=== PATIENT | male | born 1955 | race Caucasian/White ===

== ENCOUNTER 2022-09-26 22:03 | Inpatient (IN) | payer OTHER, SELFPAY ==
--- NOTE | 2022-09-26 | ECG_ITS ---
Test Reason : SOB Blood Pressure : / mmHG Vent. Rate : 116 BPM Atrial Rate : 116 BPM P-R Int : 144 ms QRS Dur : 140 ms QT Int : 354 ms P-R-T Axes : 060 111 015 degrees QTc Int : 492 ms Sinus tachycardia Nonspecific ST abnormality Possible Left atrial enlargement Right bundle branch block Left posterior fascicular block Bifascicular block Abnormal ECG No previous ECGs available Referred By: Generic ED Physician Electronically Signed By:VIOLET MONROE MD
[2022-09-26 22:08] VITALS: BP 242/165; PULSE 128; RESP 16; TEMP 36.7; O2SAT 99; BMI 27.8
[2022-09-26 22:41] LABS: MANUAL DIFF FLAG NO
[2022-09-26 22:42] LABS: Basophils Percent Auto 0.3 % (0-2); Eosinophils Absolute Auto 0.1 X10*3/uL (0.0-0.4); Eosinophils Percent Auto 0.5 % (0-4); Hematocrit 49.7 % (42.0-52.0); Hemoglobin 17.1 g/dl (14.0-18.0); Imm Gran Abs Auto 0.04 X10*3/uL (0.00-0.03); Imm Gran Pct Auto 0.4 % (0.0-0.4); Lymphocytes Absolute Auto 1.4 X10*3/uL (1.2-4.9); Lymphocytes Percent Auto 13.1 % (20-40); Mean Corpuscular HGB Conc 34.4 g/dl (31.0-36.0); Mean Corpuscular Hemoglobin 30.6 pg (27.0-33.0); Mean Corpuscular Volume 89.1 fL (80.0-98.0); Mean Platelet Volume 8.4 fL (9.4-12.4); Monocytes Absolute Auto 0.6 X10*3/uL (0.1-1.2); Monocytes Percent Auto 5.4 % (2-11); Neutrophils Absolute Auto 8.4 x10*3/uL (2.0-8.3); Neutrophils Percent Auto 80.3 % (45-73); Platelet Count 265 X10*3/uL (160-400); Red Blood Count 5.58 X10*6/uL (4.60-5.80); Red Cell Distribution Width 12.3 % (11.0-16.0); White Blood Count 10.5 X10*3/uL (4.8-10.8)
[2022-09-26 22:50] VITALS: BP 203/120; PULSE 123; RESP 19; O2SAT 97
[2022-09-26 22:58] LABS: Alanine Aminotransferase 48 U/L (0-40); Albumin Level 4.7 g/dL (3.5-5.0); Alkaline Phosphatase 91 U/L (39-117); Anion Gap 19 (12-20); Aspartate Amino Transferase 27 U/L (5-37); Bilirubin Total 0.4 mg/dL (0.0-1.0); Blood Urea Nitrogen 22 mg/dL (9-16); Calcium 9.4 mg/dL (8.4-10.2); Carbon Dioxide 19 mmol/L (22-29); Chloride 103 mmol/L (96-108); Creatinine Clr Calc Pharmacy 63.9; Estimated Glomerular Filt Rate 57; Glucose Random 241 mg/dL (60-115); Potassium 4.4 mmol/L (3.3-5.1); Sodium 137 mmol/L (135-145); Total Protein 7.9 g/dL (6.5-8.0)
[2022-09-26 23:08] LABS: Troponin-I High Sensitivity 192.2 ng/L (<3.5-35.0)
--- NOTE | 2022-09-26 23:08 | ED_ITS ---
HPI - General Adult General Chief complaint: General Medical Stated complaint: difficulty breathing , rapid heart beat Time Seen by Provider: 09/26/22 22:54 Source: patient and family Mode of arrival: ambulatory Limitations: no limitations History of Present Illness HPI narrative: 66-year-old male with no known past medical history (has not been to see a doctor for several years) presents to the emergency department today with vague symptoms of general weakness. States he feels ?like I ran out of gas?. This h as been going on for several weeks on and off. No associated chest pain or shortness of breath. There has been no fevers or shaking chills. Negative COVID test approximately 3 weeks ago. Onset (ago): day(s) Location: chest, back and upper extremity Radiation: non-radiation Severity: moderate Quality: dull Pain Consistency: intermittent Related Data Previous Rx's Medication Instructions Recorded amlodipine 10 mg tablet 10 mg PO DAILY #30 tabs 09/29/22 aspirin 81 mg chewable tablet 81 mg PO DAILY #30 tabs 09/29/22 atorvastatin 80 mg tablet 80 mg PO BEDTIME #30 tabs 09/29/22 clopidogrel 75 mg tablet (Plavix) 75 mg PO DAILY #30 tabs 09/30/22 metoprolol succinate 25 mg 25 mg PO DAILY #30 tabs 09/30/22 tablet,extended release 24 hr Allergies Allergy/AdvReac Type Severity Reaction Status Date / Time No Known Allergies Allergy Verified 09/26/22 23:09 Review of Systems Constitutional: Constitutional: Reports body ache(s), Denies chills, Denies fever(s) and Denies weakness Eyes: Eyes: Denies blurry vision, Denies diplopia and Denies eye discharge ENT: Denies dizziness, Denies nasal congestion, Denies sore throat and Denies throat swelling Cardiovascular: Cardiovascular: Denies syncope, Denies Loss of Consciousness, Denies palpitations and Denies dyspnea Respiratory: Respiratory: Reports no additional respiratory complaints, Denies dyspnea and Denies wheezing Gastrointestinal: Gastrointestinal: Reports no additional gastrointestinal complaints, Denies nausea and Denies vomiting Genitourinary: Genitourinary: Reports no additional male genitourinary complaints, Denies dysuria and Denies urinary frequency Musculoskeletal: Musculoskeletal: Reports no additional musculoskeletal complaints, Denies back pain and Denies arthralgias Integumentary/Breasts: Skin/Breast: Reports system reviewed and no additional complaints, except as docu and Denies jaundice Neurologic: Denies Abnormal speech present, Denies dizziness, Denies syncope, Denies Sensory deficit (Neuro) and Denies weakness Endocrine: Endocrine: Denies palpitations Allergic/Immunologic: Allergic/Immunologic: Denies throat swelling and Denies wheezing [facility] Past Medical History Attestation statement: The following information was validated with the patient. [facility] Narrative: No significant past medical or social history Source: nursing notes reviewed Medical History Patient denies significant medical history Surgical History No history of previous surgery Family History Family History (Updated 09/27/22 @ 11:28 by Celso Rodrigues MD) Mother Atrial fibrillation Heart valve replaced Other No family history of coronary artery disease Social History Social History Household Members: Spouse Housing: House Do you presently have visiting nurse or other home services: No Alcohol intake: former Patient Tobacco Use Status: Never used Tobacco service: No Physical Exam ED Vital Signs: Vital Signs - 24 hr 09/26/22 22:08 09/26/22 22:50 Temperature 98.1 F Pulse Rate 128 H 123 H Respiratory Rate 16 19 Blood Pressure 242/165 H 203/120 H Pulse Oximetry 99 97 Oxygen Delivery Method Room Air Room Air BMI result Body Mass Index 27.8 Vital signs notable for significant tachycardia, as well as hypertension Const General: cooperative, no acute distress, alert and awake; No diaphoretic Nutritional Appearance: overweight Orientation/consciousness: patient oriented x3 Limitations: no limitations [facility] Head: Yes normal to inspection, Yes normocephalic and Yes atraumatic Ears: hearing grossly normal bilaterally General nose exam: Normal external nose present Face and sinus: Yes normal facial exam Mouth: Normal oral and palatal mucosa present Eyes General: appearance normal, both eyes and all related structures Conjunctivae: conjunctivae normal Sclerae: sclerae normal Pupils: Equal, round and reactive pupils present EOM: EOMs intact bilaterally Neck Neck: Yes normal visual inspection and Yes full ROM Resp Effort & Inspection: normal respiratory effort, normal respiratory pattern and no cough Auscultation: clear to auscultation bilaterally Cardio Rate: regular rate Rhythm: regular rhythm Heart sounds: no murmurs GI Inspection: Yes normal to inspection, No Abdominal wall edema and No distended Palpation (GI): not soft and nontender Back/Spine/Pelvis Cervical Spine: normal cervical lordosis and cervical ROM normal Skin General skin exam: no rashes or lesions noted, no jaundice and no pallor Neuro General: patient oriented x3 and CN's II-XI intact bilaterally Cranial nerves: Yes Equal, round and reactive pupils present Cognition (Neuro): normal cognition Speech: No Abnormal speech present Motor exam (neuro): 5/5 motor strength present throughout Sensory Exam: No Sensory deficit (Neuro) Medications Administered Discontinued Medications Generic Name Dose Route Start Last Admin Trade Name Freq PRN Reason Stop Dose Admin Amlodipine Besylate 10 mg 09/27/22 09:00 09/30/22 09:04 Amlodipine Besylate 10 Mg Tablet PO 10 mg DAILY DEEPALI Administration Protocol Aspirin 325 mg 09/26/22 23:09 09/26/22 23:25 Aspirin 325 Mg Tablet PO 09/26/22 23:10 325 mg ONCE ONE Administration Aspirin 81 mg 09/28/22 09:00 09/30/22 09:04 Aspirin 81 Mg Tab.Chew PO 81 mg DAILY DEEPALI Administration Atorvastatin Calcium 80 mg 09/28/22 21:00 09/29/22 19:54 Atorvastatin Calcium 80 Mg Tablet PO 80 mg BEDTIME DEEPALI Administration Clopidogrel Bisulfate 300 mg 09/29/22 17:18 09/29/22 18:52 Clopidogrel Bisulfate 300 Mg Tablet PO 09/29/22 17:19 300 mg ONCE ONE Administration Heparin Sodium (Porcine) 4,000 unit 09/27/22 07:21 09/27/22 07:32 Heparin Sodium,Porcine 5,000 Unit/Ml Vial IVPUSH 09/27/22 07:22 4,000 unit ONCE ONE Administration Heparin Sodium (Porcine) 4,800 unit 09/27/22 07:21 09/27/22 22:11 Heparin Sodium,Porcine 5,000 Unit/Ml Vial 40 unit/kg (4800 unit) 4,800 unit IVPUSH Administration PROTOCOL BOLUS PRN 40 unit/kg - Heparin Protocol Protocol Hydrochlorothiazide 25 mg 09/27/22 01:35 09/27/22 01:47 Hydrochlorothiazide 25 Mg Tablet PO 25 mg DAILY DEEPALI Administration Protocol Sodium Chloride 1,000 mls @ 1,000 mls/hr 09/26/22 23:09 09/27/22 01:13 Ns IV 09/27/22 00:08 Infused .Q1H ONE Infusion Metoprolol Tartrate 5 mg/ 55 mls @ 230 mls/hr 09/26/22 23:11 09/26/22 23:52 Sodium Chloride IV 09/26/22 23:25 Infused ONCE ONE Infusion Lactated Ringer's 1,000 mls @ 100 mls/hr 09/27/22 01:30 09/28/22 09:05 Lr IVCONT Infused .Q10H DEEPALI Infusion Heparin Sodium/Sodium Chloride 25,000 unit in 250 mls @ 0 mls/hr 09/27/22 07:30 09/29/22 09:53 Heparin Sodium,Porcine/1/2ns IVCONT Infused .Q0M DEEPALI Titration Protocol Per Protocol Labetalol HCl 200 mg 09/27/22 00:08 09/27/22 00:15 Labetalol Hcl 200 Mg Tablet PO 09/27/22 00:09 200 mg ONCE ONE Administration Protocol Metoprolol Succinate 25 mg 09/29/22 17:20 09/30/22 09:04 Metoprolol Succinate Er 25 Mg Tab.Er.24h PO 25 mg DAILY [facility] Administration Protocol Sodium Chloride 3 ml 09/27/22 08:00 09/30/22 17:05 0.9 % Sodium Chloride Flush 3 Ml Syringe IVFLUSH 3 ml QSHIFT [facility] Administration Medical Decision Making Lab Data 09/28/22 04:02 09/28/22 04:02 Labs: Lab Results 09/26/22 09/26/22 09/26/22 Range/Units 22:36 22:36 22:36 WBC 10.5 (4.8-10.8) X10*3/uL RBC 5.58 (4.60-5.80) X10*6/uL Hgb 17.1 (14.0-18.0) g/dl Hct 49.7 (42.0-52.0) % MCV 89.1 (80.0-98.0) fL MCH 30.6 (27.0-33.0) pg MCHC 34.4 (31.0-36.0) g/dl RDW 12.3 (11.0-16.0) % Plt Count 265 (160-400) X10*3/uL MPV 8.4 L (9.4-12.4) fL Immature Gran % (Auto) 0.4 (0.0-0.4) % Neut % (Auto) 80.3 H (45-73) % Lymph % (Auto) 13.1 L (20-40) % [place] % (Auto) 5.4 (2-11) % Eos % (Auto) 0.5 (0-4) % Baso % (Auto) 0.3 (0-2) % Lymph # (Auto) 1.4 (1.2-4.9) X10*3/uL [place] # (Auto) 0.6 (0.1-1.2) X10*3/uL Eos # (Auto) 0.1 (0.0-0.4) X10*3/uL Baso # (Auto) 0.0 (0.0-0.2) X10*3/uL Abs Immat Gran (auto) 0.04 H (0.00-0.03) X10*3/uL Absolute Neuts (auto) 8.4 H (2.0-8.3) x10*3/uL Absolute Nucleated RBC 0.000 (0.0-0.012) X10*3/uL Nucleated RBC % (auto) 0.0 (0.0-0.2) /100WBC Sodium 137 (135-145) mmol/L Potassium 4.4 (3.3-5.1) mmol/L Chloride 103 (96-108) mmol/L Carbon Dioxide 19 L (22-29) mmol/L Anion Gap 19 (12-20) BUN 22 H (9-16) mg/dL Creatinine 1.28 (0.5-1.4) mg/dL Estim Creat Clear Calc 63.9 Estimated GFR 57 Random Glucose 241 H (60-115) mg/dL Calcium 9.4 (8.4-10.2) mg/dL Total Bilirubin 0.4 (0.0-1.0) mg/dL AST 27 (5-37) U/L ALT 48 H (0-40) U/L Alkaline Phosphatase 91 (39-117) U/L Troponin I High Sens 192.2 H* (<3.5-35.0) ng/L Total Protein 7.9 (6.5-8.0) g/dL Albumin 4.7 (3.5-5.0) g/dL Influenza Type A (PCR) (Negative) Influenza Type B (PCR) (Negative) RSV RNA Qual (PCR) (Negative) SARS-CoV-2 RNA (RT-PCR) (Negative) 09/26/22 Range/Units 23:21 WBC (4.8-10.8) X10*3/uL RBC (4.60-5.80) X10*6/uL Hgb (14.0-18.0) g/dl Hct (42.0-52.0) % MCV (80.0-98.0) fL MCH (27.0-33.0) pg MCHC (31.0-36.0) g/dl RDW (11.0-16.0) % Plt Count (160-400) X10*3/uL MPV (9.4-12.4) fL Immature Gran % (Auto) (0.0-0.4) % Neut % (Auto) (45-73) % Lymph % (Auto) (20-40) % [place] % (Auto) (2-11) % Eos % (Auto) (0-4) % Baso % (Auto) (0-2) % Lymph # (Auto) (1.2-4.9) X10*3/uL [place] # (Auto) (0.1-1.2) X10*3/uL Eos # (Auto) (0.0-0.4) X10*3/uL Baso # (Auto) (0.0-0.2) X10*3/uL Abs Immat Gran (auto) (0.00-0.03) X10*3/uL Absolute Neuts (auto) (2.0-8.3) x10*3/uL Absolute Nucleated RBC (0.0-0.012) X10*3/uL Nucleated RBC % (auto) (0.0-0.2) /100WBC Sodium (135-145) mmol/L Potassium (3.3-5.1) mmol/L Chloride (96-108) mmol/L Carbon Dioxide (22-29) mmol/L Anion Gap (12-20) BUN (9-16) mg/dL Creatinine (0.5-1.4) mg/dL Estim Creat Clear Calc Estimated GFR Random Glucose (60-115) mg/dL Calcium (8.4-10.2) mg/dL Total Bilirubin (0.0-1.0) mg/dL AST (5-37) U/L ALT (0-40) U/L Alkaline Phosphatase (39-117) U/L Troponin I High Sens (<3.5-35.0) ng/L Total Protein (6.5-8.0) g/dL Albumin (3.5-5.0) g/dL Influenza Type A (PCR) NEGATIVE (Negative) Influenza Type B (PCR) NEGATIVE (Negative) RSV RNA Qual (PCR) NEGATIVE (Negative) SARS-CoV-2 RNA (RT-PCR) NEGATIVE (Negative) Discharge Plan Discharge Clinical Impression: Hypertensive emergency, Elevated troponin level Patient Disposition: Admitted As Inpatient Interventions: Admission Worksheet (ED) Last Done: 09/27/22 09:11 Discharge Date/Time: 09/27/22 09:11
[2022-09-26] MEDS: Aspirin 325 MG TABLET PO (23:25)
[2022-09-26] MEDS: 0.9 % Sodium Chloride 1,000 ML 1000 ML IV (23:29)
[2022-09-26] MEDS: Metoprolol Tartrate 5 MG in 0.9 % Sodium Chloride 50 ML 230 MG IV (23:32)
[2022-09-26 23:35] VITALS: BP 200/125; PULSE 96; RESP 20; O2SAT 97
--- NOTE | 2022-09-27 | ECG_ITS ---
Test Reason : HIGH TROPONIN Blood Pressure : / mmHG Vent. Rate : 081 BPM Atrial Rate : 081 BPM P-R Int : 156 ms QRS Dur : 138 ms QT Int : 398 ms P-R-T Axes : 060 068 113 degrees QTc Int : 462 ms Normal sinus rhythm Right bundle branch block T wave abnormality, consider lateral ischemia Abnormal ECG When compared with ECG of 26-SEP-2022 22:23, T wave inversion no longer evident in Inferior leads T wave inversion now evident in Anterolateral leads Referred By: Maryjo Moody Electronically Signed By:VIOLET MONROE MD
[2022-09-27 00:05] LABS: Influenza A PCR NEGATIVE (Negative); Influenza B PCR NEGATIVE (Negative); Resp Syncy Virus RNA Qual PCR NEGATIVE (Negative); SARS COV2 PCR INHOUSE NEGATIVE (Negative)
[2022-09-27 00:14] VITALS: BP 152/97; PULSE 83; RESP 20; O2SAT 96
[2022-09-27] MEDS: Labetalol HCL 200 MG TABLET PO (00:15)
[2022-09-27] MEDS: hydroCHLOROthiazide 25 MG TABLET PO (01:47)
[2022-09-27] MEDS: Lactated Ringers 1,000 ML 100 ML IVCONT ×3 (01:48→23:10)
[2022-09-27 02:26] LABS: Troponin-I High Sensitivity 1476.9 ng/L (<3.5-35.0)
--- NOTE | 2022-09-27 02:43 | PC.NURSE ---
EKG obtained 09/27/22 - 02:31 Per Hospitalist. Sent Via [employer] App for review.
--- NOTE | 2022-09-27 03:22 | PC.NURSE ---
This RN informs MD Maryjo Moody of troponin result at this time. Troponin 1476.9 (up from 192.2). Patient denies chest pain or discomfort at this time.
[2022-09-27 03:43] VITALS: BP 102/71; PULSE 79; RESP 16; O2SAT 95
[2022-09-27 06:01] LABS: MANUAL DIFF FLAG NO
[2022-09-27 06:04] LABS: Basophils Percent Auto 0.5 % (0-2); Eosinophils Percent Auto 0.5 % (0-4); Hematocrit 43.5 % (42.0-52.0); Hemoglobin 14.7 g/dl (14.0-18.0); Imm Gran Abs Auto 0.02 X10*3/uL (0.00-0.03); Imm Gran Pct Auto 0.2 % (0.0-0.4); Lymphocytes Absolute Auto 1.8 X10*3/uL (1.2-4.9); Lymphocytes Percent Auto 21.6 % (20-40); Mean Corpuscular HGB Conc 33.8 g/dl (31.0-36.0); Mean Corpuscular Hemoglobin 30.4 pg (27.0-33.0); Mean Corpuscular Volume 90.1 fL (80.0-98.0); Mean Platelet Volume 8.5 fL (9.4-12.4); Monocytes Absolute Auto 0.7 X10*3/uL (0.1-1.2); Monocytes Percent Auto 8.8 % (2-11); Neutrophils Absolute Auto 5.6 x10*3/uL (2.0-8.3); Neutrophils Percent Auto 68.4 % (45-73); Platelet Count 236 X10*3/uL (160-400); Red Blood Count 4.83 X10*6/uL (4.60-5.80); Red Cell Distribution Width 12.5 % (11.0-16.0); White Blood Count 8.1 X10*3/uL (4.8-10.8)
[2022-09-27 06:22] LABS: Anion Gap 13 (12-20); Blood Urea Nitrogen 18 mg/dL (9-16); Calcium 8.6 mg/dL (8.4-10.2); Carbon Dioxide 22 mmol/L (22-29); Chloride 105 mmol/L (96-108); Creatinine Clr Calc Pharmacy 85.3; Estimated Glomerular Filt Rate > 60; Glucose Random 117 mg/dL (60-115); Potassium 4.4 mmol/L (3.3-5.1); Sodium 136 mmol/L (135-145)
[2022-09-27 06:23] LABS: B Type Natriuretic Peptide 180 pg/mL (<100)
[2022-09-27 06:28] LABS: Troponin-I High Sensitivity > 3600.0 ng/L (<3.5-35.0)
[2022-09-27 06:41] VITALS: BMI 35.6
--- NOTE | 2022-09-27 06:43 | PM.IMHP ---
History of Present Illness Date of Service: 09/27/22 Chief Complaint: Fatigue This is a 66-year-old male with no past medical history that he knows of, he has not seen a physician in over 15 years presents to the hospital with complaints of feeling fatigue with minimal activity. Patient reports that for the past 2 weeks he has had very strange symptoms that when he does minimal exertional activity he feels that he cannot take deep breaths and significant fatigue that improves on rest. Patient denies any headache, no dizziness, palpitations, no cough, no sputum production, no abdominal pain nausea or vomiting, no diarrhea constipation, no urinary symptoms and no lower extremity edema. On arrival to the ED patient's blood pressure was 2 40-1 was 65, patient at that time reported no other symptoms. Including no headache no chest pain, and no urinary change. Labs are significant for WBC count of 8.1, initial troponin of 192, increased to 1476, BNP of 180, EKG on arrival showed sinus tachycardia with a heart rate of 116, T-wave inversion in lead 3, Patient denies any chest pain Review of Systems Review of Systems: Yes all other systems are reviewed and are negative [facility] Medical History Patient denies significant medical history Family History Other No family history of coronary artery disease Surgical History No history of previous surgery Social History Alcohol intake: former Patient Tobacco Use Status: Former Tobacco user Use of substances other than those prescribed or required for medical reasons: No Advance Directives: No Advance Directives Information Provided: Yes Meds Allergies Allergy/AdvReac Type Severity Reaction Status Date / Time No Known Allergies Allergy Verified 09/26/22 23:09 Active Medications: Current Medications Acetaminophen (Acetaminophen 325 Mg Tablet) 650 mg PO Q6H PRN PRN Reason: Pain, Mild (Pain Scale 1-3) Amlodipine Besylate (Amlodipine Besylate 10 Mg Tablet) 10 mg PO DAILY DEEPALI; Protocol Docusate Sodium (Docusate Sodium 100 Mg Capsule) 100 mg PO DAILY PRN PRN Reason: Constipation Heparin Sodium (Porcine) (Heparin Sodium,Porcine 5,000 Unit/Ml Vial) 7,400 unit 80 unit/kg (7400 unit) IVPUSH ONCE ONE Stop: 09/27/22 06:36 Heparin Sodium (Porcine) (Heparin Sodium,Porcine 5,000 Unit/Ml Vial) 3,700 unit 40 unit/kg (3700 unit) IVPUSH PROTOCOL BOLUS PRN; Protocol PRN Reason: 40 unit/kg - Heparin Protocol Heparin Sodium (Porcine) (Heparin Sodium,Porcine 5,000 Unit/Ml Vial) 7,400 unit 80 unit/kg (7400 unit) IVPUSH PROTOCOL BOLUS PRN; Protocol PRN Reason: 80 unit/kg - Heparin Protocol Lactated Ringer's (Lr) 1,000 mls @ 100 mls/hr IVCONT .Q10H [facility] Last Admin: 09/27/22 01:48 Dose: 100 mls/hr Heparin Sodium/Sodium Chloride (Heparin Sodium,Porcine/1/2ns) 25,000 unit in 250 mls @ 0 mls/hr IVCONT .Q0M [facility]; Protocol Ondansetron HCl (Ondansetron Hcl 4 Mg/2 Ml Vial) 4 mg IVPUSH Q8H PRN PRN Reason: Nausea and Vomiting Sodium Chloride (0.9 % Sodium Chloride Flush 3 Ml Syringe) 3 ml IVFLUSH QSHIFT [facility] Home Medications Medication Instructions Recorded Confirmed Last Taken Type No Known Home Meds 09/27/22 09/27/22 Unknown History Physical Exam Vital Signs and Narrative: Vital Signs: Last Vital Signs Temp 98.1 F 09/26/22 22:08 Pulse 79 09/27/22 03:43 Resp 16 09/27/22 03:43 BP 102/71 09/27/22 03:43 Pulse Ox 95 09/27/22 03:43 O2 Del Method 09/27/22 03:43 BMI result Body Mass Index 35.6 Const: General: cooperative and no acute distress Orientation/consciousness: patient oriented x3 Eyes: General: appearance normal, both eyes and all related structures Pupils: Equal, round and reactive pupils present Resp: Effort & Inspection: normal respiratory effort Auscultation: clear to auscultation bilaterally Cardio: Rate: regular rate Rhythm: regular rhythm GI: Palpation (GI): Soft to palpation Auscultation: normal bowel sounds Skin: General skin exam: no rashes or lesions noted Neuro: General: patient oriented x3 Cranial nerves: Yes Equal, round and reactive pupils present Cognition (Neuro): normal cognition Extrem: General: Yes normal to inspection and Yes no pedal edema Results Labs CBC and Chem 7: 09/27/22 05:37 09/27/22 05:37 Labs: Laboratory Results - last 24 hr 09/26/22 09/26/22 09/26/22 22:36 22:36 22:36 MCV 89.1 MCH 30.6 MCHC 34.4 RDW 12.3 Plt Count 265 MPV 8.4 L Immature Gran % (Auto) 0.4 Neut % (Auto) 80.3 H Lymph % (Auto) 13.1 L [place] % (Auto) 5.4 Eos % (Auto) 0.5 Baso % (Auto) 0.3 Lymph # (Auto) 1.4 [place] # (Auto) 0.6 Eos # (Auto) 0.1 Baso # (Auto) 0.0 Abs Immat Gran (auto) 0.04 H Absolute Neuts (auto) 8.4 H Absolute Nucleated RBC 0.000 Nucleated RBC % (auto) 0.0 Anion Gap 19 Estim Creat Clear Calc 63.9 Estimated GFR 57 Random Glucose 241 H Calcium 9.4 Total Bilirubin 0.4 AST 27 ALT 48 H Alkaline Phosphatase 91 Troponin I High Sens 192.2 H* B-Natriuretic Peptide Total Protein 7.9 Albumin 4.7 Influenza Type A (PCR) Influenza Type B (PCR) RSV RNA Qual (PCR) SARS-CoV-2 RNA (RT-PCR) 09/26/22 09/27/22 09/27/22 23:21 01:52 05:37 MCV 90.1 MCH 30.4 MCHC 33.8 RDW 12.5 Plt Count 236 MPV 8.5 L Immature Gran % (Auto) 0.2 Neut % (Auto) 68.4 Lymph % (Auto) 21.6 [place] % (Auto) 8.8 Eos % (Auto) 0.5 Baso % (Auto) 0.5 Lymph # (Auto) 1.8 [place] # (Auto) 0.7 Eos # (Auto) 0.0 Baso # (Auto) 0.0 Abs Immat Gran (auto) 0.02 Absolute Neuts (auto) 5.6 Absolute Nucleated RBC 0.000 Nucleated RBC % (auto) 0.0 Anion Gap Estim Creat Clear Calc Estimated GFR Random Glucose Calcium Total Bilirubin AST ALT Alkaline Phosphatase Troponin I High Sens 1476.9 H* B-Natriuretic Peptide Total Protein Albumin Influenza Type A (PCR) NEGATIVE Influenza Type B (PCR) NEGATIVE RSV RNA Qual (PCR) NEGATIVE SARS-CoV-2 RNA (RT-PCR) NEGATIVE 09/27/22 09/27/22 09/27/22 05:37 05:37 05:37 MCV MCH MCHC RDW Plt Count MPV Immature Gran % (Auto) Neut % (Auto) Lymph % (Auto) [place] % (Auto) Eos % (Auto) Baso % (Auto) Lymph # (Auto) [place] # (Auto) Eos # (Auto) Baso # (Auto) Abs Immat Gran (auto) Absolute Neuts (auto) Absolute Nucleated RBC Nucleated RBC % (auto) Anion Gap 13 Estim Creat Clear Calc 85.3 Estimated GFR > 60 Random Glucose 117 H Calcium 8.6 D Total Bilirubin AST ALT Alkaline Phosphatase Troponin I High Sens > 3600.0 H* D B-Natriuretic Peptide 180 H Total Protein Albumin Influenza Type A (PCR) Influenza Type B (PCR) RSV RNA Qual (PCR) SARS-CoV-2 RNA (RT-PCR) Assessment and Plan (1) Hypertensive emergency: Status: Acute (2) Elevated troponin: Status: Acute Plan 66-year-old male who has not seen a physician in 15 years and reports no past medical history presents to the hospital with complaints of fatigue found to have hypertensive crisis # hypertensive emergency - presents to the hospital with blood pressure in the 240s/160s. Received p.o. labetalol 200 mg as well as metoprolol in the ED, the patient also started on p.o. medications with significant improvement in his blood pressure - patient does have and organ damage with troponin of 192 - repeat troponin of 1400s with no chest pain, does have some EKG changes - will start patient on amlodipine - follow blood pressure # elevated troponin - likely demand secondary to hypertension - no chest pain, does have small EKG changes, discussed with Cardiology, no need for heparin drip at this time - will obtain echocardiogram DVT prophylaxis: heparin subq Quality Stroke Does the patient have a stroke diagnosis?: No VTE Prior VTE?: No VTE Risk Level:: Medical - low VTE Device Contraindication: Treatment Not Indicated VTE Drug Contraindication: Treatment Not Indicated
[2022-09-27 06:51] LABS: Prothrombin Time 11.4 SEC (10.0-13.1)
[2022-09-27 06:54] LABS: PTT Heparin Drip 27.6 SEC (53-77.9)
--- NOTE | 2022-09-27 07:05 | PM.EVENT ---
Event Note Date of Service: 09/27/22 Event Note: Patient's troponin from this morning more than 3600 Repeat EKG shows T-wave inversions in lateral leads Discussed with Cardiology, at this time will start patient on heparin drip Echo ordered
[2022-09-27] MEDS: Heparin Sodium,Porcine 5,000 UNIT/ML VIAL 4000 UNIT IVPUSH (07:32)
[2022-09-27] MEDS: Heparin Sodium,Porcine/1/2NS 25,000 UNIT/250 ML IV.SOLN 10 UNIT IVCONT (07:55)
--- NOTE | 2022-09-27 08:24 | PC.NURSE ---
Pt alert and oriented, respirations even and unlabored. Ambulates with steady gait to bathroom. Heparin gtt initiated per the DEC.
[2022-09-27 09:47] VITALS: BP 131/75; PULSE 74; RESP 19; TEMP 36.4; O2SAT 98
[2022-09-27 10:29] VITALS: BMI 35.6
--- NOTE | 2022-09-27 10:38 | PHA.MEDREC ---
Pharmacy Consult ? Medication Reconciliation Pharmacy has completed the medication reconciliation. Spoke to patient and spouse and confirmed that he takes no medication at home prescription or OTC. Spouse states he took baby aspirin for 3 or 4 days but stopped last week sometime.
[2022-09-27] MEDS: amLODIPine Besylate 10 MG TABLET PO (10:56)
--- NOTE | 2022-09-27 11:26 | P.CONCA_ITS ---
History of Present Illness History of Present Illness Date of Service: 09/27/22 Chief complaint: hypertensive emergency Narrative: This is a cardiology consultation regarding uncontrolled hypertension as well as NSTEMI. Patient states he has not seen a doctor in many years and more than decade. He states he generally healthy and did not have any problems and hence he did see a doctor. Also did not have any insurance. According to , he has been having some shortness of breath over the last few years but did not seek attention. Over the last few weeks, he has been having shortness of breath at different times including activities like going out trash extra. Hence sought attention which showed markedly high blood pressures. Initial recorded blood pressure was 242/165 mm Hg. After that, troponins were also checked and they were very high. Eventually, he was admitted for further care. Currently, he states he is feeling better. Denies any active anginal-type chest pains. Main symptom was shortness of breath with activity that brought him to the hospital. No known cardiac issues in the past. Review of Systems Review of Systems: Yes all other systems are reviewed and are negative Constitutional: Constitutional: Reports as per HPI Eyes: Eyes: Reports as per HPI ENT: Reports as per HPI Cardiovascular: Cardiovascular: Reports as per HPI, Denies acrocyanosis, Denies cool extremities, Denies chest pain, Denies leg edema, Denies lightheadedness, Denies palpitations and Reports dyspnea Respiratory: Respiratory: Reports as per HPI, Reports no additional respiratory complaints and Reports dyspnea Gastrointestinal: Gastrointestinal: Reports as per HPI and Reports no additional gastrointestinal complaints Genitourinary: Genitourinary: Reports no additional male genitourinary complaints and Reports as per HPI Musculoskeletal: Musculoskeletal: Reports no additional musculoskeletal complaints and Reports as per HPI Integumentary/Breasts: Skin/Breast: Reports system reviewed and no additional complaints, except as docu Neurologic: Reports system reviewed and no additional complaints, except as documented and Reports as per HPI Psychiatric: Psychiatric: Reports no additional psychiatric complaints and Reports as per HPI Endocrine: Endocrine: Reports no additional endocrine complaints, Reports as per HPI and Denies palpitations Hematologic/Lymphatic: Hematologic/Lymphatic: Reports no additional hematologic/lymphatic complaints and Reports as per HPI Allergic/Immunologic: Allergic/Immunologic: Reports no additional allergic/immunologic complaints and Reports as per HPI [facility] Past Medical History Medical History Patient denies significant medical history Cognitive capacity: Has not seen a physician for long time. Family History Family History (Updated 09/27/22 @ 11:28 by Celso Rodrigues MD) Mother Atrial fibrillation Heart valve replaced Other No family history of coronary artery disease Surgical History Surgical History No history of previous surgery Social History Social History Household Members: Spouse Housing: House Do you presently have visiting nurse or other home services: No Alcohol intake: former Patient Tobacco Use Status: Never used Tobacco Meds Allergies Allergy/AdvReac Type Severity Reaction Status Date / Time No Known Allergies Allergy Verified 09/26/22 23:09 Active Medications: Current Medications Acetaminophen (Acetaminophen 325 Mg Tablet) 650 mg PO Q6H PRN PRN Reason: Pain, Mild (Pain Scale 1-3) Amlodipine Besylate (Amlodipine Besylate 10 Mg Tablet) 10 mg PO DAILY DEEPALI; Pro tocol Last Admin: 09/27/22 10:56 Dose: 10 mg Docusate Sodium (Docusate Sodium 100 Mg Capsule) 100 mg PO DAILY PRN PRN Reason: Constipation Heparin Sodium (Porcine) (Heparin Sodium,Porcine 5,000 Unit/Ml Vial) 4,800 unit 40 unit/kg (4800 unit) IVPUSH PROTOCOL BOLUS PRN; Protocol PRN Reason: 40 unit/kg - Heparin Protocol Heparin Sodium (Porcine) (Heparin Sodium,Porcine 5,000 Unit/Ml Vial) 9,500 unit 80 unit/kg (9500 unit) IVPUSH PROTOCOL BOLUS PRN; Protocol PRN Reason: 80 unit/kg - Heparin Protocol Lactated Ringer's (Lr) 1,000 mls @ 100 mls/hr IVCONT .Q10H DEEPALI Last Admin: 09/27/22 01:48 Dose: 100 mls/hr Heparin Sodium/Sodium Chloride (Heparin Sodium,Porcine/1/2ns) 25,000 unit in 250 mls @ 0 mls/hr IVCONT .Q0M DEEPALI; Protocol Last Admin: 09/27/22 07:55 Dose: 8.4 units/kg/hr, 10 mls/hr Ondansetron HCl (Ondansetron Hcl 4 Mg/2 Ml Vial) 4 mg IVPUSH Q8H PRN PRN Reason: Nausea and Vomiting Sodium Chloride (0.9 % Sodium Chloride Flush 3 Ml Syringe) 3 ml IVFLUSH QSHIFT [facility] Last Admin: 09/27/22 07:34 Dose: Not Given Home Medications Medication Instructions Recorded Confirmed Last Taken Type No Known Home Meds 09/27/22 09/27/22 Unknown History Physical Exam Vital Signs: Vital Signs: Last Vital Signs Temp 97.5 F 09/27/22 09:47 Pulse 74 09/27/22 09:47 Resp 19 09/27/22 09:47 BP 131/75 09/27/22 09:47 Pulse Ox 98 09/27/22 09:47 O2 Del Method 09/27/22 09:47 BMI result Body Mass Index 35.6 Const: General: comfortable and no acute distress Orientation/consciousness: patient oriented x3 HEENT: Other: Unremarkable Head: Yes normal to inspection Neck: Neck: Yes normal visual inspection Chest: Chest palpation & inspection: normal inspection of the chest Resp: Auscultation: clear to auscultation bilaterally Cardio: Palpation: normal PMI Heart sounds: S1 normal heart sound present, S2 normal heart sound present, no gallops, no murmurs and no rubs GI: Palpation (GI): Soft to palpation Back/Spine/Pelvis: Other: unremarkable Skin: General skin exam: no rashes or lesions noted Neuro: General: patient oriented x3 Extrem: General: Yes normal to inspection Psych: Mental Status: mental status grossly normal Objective Labs and Meds Result diagrams: 09/27/22 05:37 09/27/22 05:37 Lab results: Laboratory Results - last 24 hr 09/26/22 09/26/22 09/26/22 22:36 22:36 22:36 WBC 10.5 RBC 5.58 Hgb 17.1 Hct 49.7 MCV 89.1 MCH 30.6 MCHC 34.4 RDW 12.3 Plt Count 265 MPV 8.4 L Immature Gran % (Auto) 0.4 Neut % (Auto) 80.3 H Lymph % (Auto) 13.1 L Metcalfe % (Auto) 5.4 Eos % (Auto) 0.5 Baso % (Auto) 0.3 Lymph # (Auto) 1.4 Metcalfe # (Auto) 0.6 Eos # (Auto) 0.1 Baso # (Auto) 0.0 Abs Immat Gran (auto) 0.04 H Absolute Neuts (auto) 8.4 H Absolute Nucleated RBC 0.000 Nucleated RBC % (auto) 0.0 PT INR aPTT Heparin Protocol Sodium 137 Potassium 4.4 Chloride 103 Carbon Dioxide 19 L Anion Gap 19 BUN 22 H Creatinine 1.28 Estim Creat Clear Calc 63.9 Estimated GFR 57 Random Glucose 241 H Calcium 9.4 Total Bilirubin 0.4 AST 27 ALT 48 H Alkaline Phosphatase 91 Troponin I High Sens 192.2 H* B-Natriuretic Peptide Total Protein 7.9 Albumin 4.7 Influenza Type A (PCR) Influenza Type B (PCR) RSV RNA Qual (PCR) SARS-CoV-2 RNA (RT-PCR) 09/26/22 09/27/22 09/27/22 23:21 01:52 05:36 WBC RBC Hgb Hct MCV MCH MCHC RDW Plt Count MPV Immature Gran % (Auto) Neut % (Auto) Lymph % (Auto) Metcalfe % (Auto) Eos % (Auto) Baso % (Auto) Lymph # (Auto) Metcalfe # (Auto) Eos # (Auto) Baso # (Auto) Abs Immat Gran (auto) Absolute Neuts (auto) Absolute Nucleated RBC Nucleated RBC % (auto) PT 11.4 INR 1.0 aPTT Heparin Protocol 27.6 L Sodium Potassium Chloride Carbon Dioxide Anion Gap BUN Creatinine Estim Creat Clear Calc Estimated GFR Random Glucose Calcium Total Bilirubin AST ALT Alkaline Phosphatase Troponin I High Sens 1476.9 H* B-Natriuretic Peptide Total Protein Albumin Influenza Type A (PCR) NEGATIVE Influenza Type B (PCR) NEGATIVE RSV RNA Qual (PCR) NEGATIVE SARS-CoV-2 RNA (RT-PCR) NEGATIVE 09/27/22 09/27/22 09/27/22 05:37 05:37 05:37 WBC 8.1 RBC 4.83 Hgb 14.7 Hct 43.5 MCV 90.1 MCH 30.4 MCHC 33.8 RDW 12.5 Plt Count 236 MPV 8.5 L Immature Gran % (Auto) 0.2 Neut % (Auto) 68.4 Lymph % (Auto) 21.6 Metcalfe % (Auto) 8.8 Eos % (Auto) 0.5 Baso % (Auto) 0.5 Lymph # (Auto) 1.8 Metcalfe # (Auto) 0.7 Eos # (Auto) 0.0 Baso # (Auto) 0.0 Abs Immat Gran (auto) 0.02 Absolute Neuts (auto) 5.6 Absolute Nucleated RBC 0.000 Nucleated RBC % (auto) 0.0 PT INR aPTT Heparin Protocol Sodium 136 Potassium 4.4 Chloride 105 Carbon Dioxide 22 Anion Gap 13 BUN 18 H Creatinine 0.96 Estim Creat Clear Calc 85.3 Estimated GFR > 60 Random Glucose 117 H Calcium 8.6 D Total Bilirubin AST ALT Alkaline Phosphatase Troponin I High Sens > 3600.0 H* D B-Natriuretic Peptide Total Protein Albumin Influenza Type A (PCR) Influenza Type B (PCR) RSV RNA Qual (PCR) SARS-CoV-2 RNA (RT-PCR) 09/27/22 05:37 WBC RBC Hgb Hct MCV MCH MCHC RDW Plt Count MPV Immature Gran % (Auto) Neut % (Auto) Lymph % (Auto) Metcalfe % (Auto) Eos % (Auto) Baso % (Auto) Lymph # (Auto) Metcalfe # (Auto) Eos # (Auto) Baso # (Auto) Abs Immat Gran (auto) Absolute Neuts (auto) Absolute Nucleated RBC Nucleated RBC % (auto) PT INR aPTT Heparin Protocol Sodium Potassium Chloride Carbon Dioxide Anion Gap BUN Creatinine Estim Creat Clear Calc Estimated GFR Random Glucose Calcium Total Bilirubin AST ALT Alkaline Phosphatase Troponin I High Sens B-Natriuretic Peptide 180 H Total Protein Albumin Influenza Type A (PCR) Influenza Type B (PCR) RSV RNA Qual (PCR) SARS-CoV-2 RNA (RT-PCR) ECG Interpretation: Admission EKG with sinus tachycardia at 116/Min; right bundle-branch block; left posterior fascicular block. Assessment and Plan (1) Hypertensive emergency: Status: Acute Admission blood pressure was 242/165 mm Hg. Currently 131/75 mm Hg. On amlodipine. Most likely blood pressure will start going up and then we can start him on Coreg. Additional medications as needed. Probably BRYSON inhibitors or ARB. (2) NSTEMI (non-ST elevated myocardial infarction): Status: Acute Could be demand related NSTEMI but he could also have underlying coronary disease due to longstanding uncontrolled hypertension. Continue IV heparin drip, aspirin, statins. Eventually, cardiac catheterization. However, patient has no insurance and hence will need to figure out from a financial standpoint. Patient is concerned about the financial implications. Hence I asked the rn field case manager to review this. Plan Also discussed with Tamara Aggarwal. Discussed with at the bedside. Procedures Date of Service Date of Service: 09/27/22
[2022-09-27 11:33] VITALS: BP 123/73; PULSE 75; RESP 18; TEMP 36.4; O2SAT 99
--- NOTE | 2022-09-27 11:52 | PM.EVENT ---
Event Note Date of Service: 09/27/22 Event Note: 66-year-old male who has not seen a physician in 15 years and reports no past medical history presents to the hospital with complaints of fatigue found to have hypertensive crisis Hypertensive emergency Blood pressure 240/160 Received labetalol and started on amlodipine. Significant improvement in blood pressure Elevated troponins as high as 3600 with ischemic EKG changes Continue to monitor blood pressure closely likely start on Coreg as blood pressure goes up NSTEMI Likely secondary to hypertension Heparin drip started Echocardiogram ordered Needs catheterization but does not have insurance Aspirin, statin DVT prophylaxis: heparin subq Attending Dr. Cloud Continue hospitalization for treatment of NSTEMI
--- NOTE | 2022-09-27 13:15 | MHC.CM.PN ---
pt to be transferred to [facility] for cardiac cath he is indepedent andrzej leslie x3 had no previous servcies lives with
[2022-09-27 14:03] LABS: PTT Heparin Drip 44.8 SEC (53-77.9)
[2022-09-27] MEDS: Heparin Sodium,Porcine 5,000 UNIT/ML VIAL 4800 UNIT IVPUSH ×2 (15:05→22:11)
[2022-09-27 16:00] VITALS: BP 139/67; PULSE 85; RESP 18; TEMP 36.9; O2SAT 99
[2022-09-27 20:00] VITALS: BP 146/78; PULSE 77; RESP 18; TEMP 36.4; O2SAT 98
[2022-09-27 21:43] LABS: PTT Heparin Drip 44.5 SEC (53-77.9)
[2022-09-28] VITALS: BP 142/65; PULSE 72; RESP 18; TEMP 36.6; O2SAT 99
[2022-09-28 04:00] VITALS: BP 142/78; PULSE 71; RESP 18; TEMP 36.6; O2SAT 98
[2022-09-28 04:09] LABS: Hematocrit 42.8 % (42.0-52.0); Hemoglobin 14.7 g/dl (14.0-18.0); Mean Corpuscular HGB Conc 34.3 g/dl (31.0-36.0); Mean Corpuscular Hemoglobin 30.8 pg (27.0-33.0); Mean Corpuscular Volume 89.7 fL (80.0-98.0); Mean Platelet Volume 8.3 fL (9.4-12.4); Platelet Count 229 X10*3/uL (160-400); Red Blood Count 4.77 X10*6/uL (4.60-5.80); Red Cell Distribution Width 12.6 % (11.0-16.0); White Blood Count 7.7 X10*3/uL (4.8-10.8)
[2022-09-28 04:18] LABS: Prothrombin Time 10.9 SEC (10.0-13.1)
[2022-09-28 04:20] LABS: PTT Heparin Drip 66.7 SEC (53-77.9)
[2022-09-28 04:31] LABS: B Type Natriuretic Peptide 229 pg/mL (<100)
[2022-09-28 04:47] LABS: Anion Gap 16 (12-20); Blood Urea Nitrogen 15 mg/dL (9-16); Calcium 9.4 mg/dL (8.4-10.2); Carbon Dioxide 23 mmol/L (22-29); Chloride 102 mmol/L (96-108); Creatinine Clr Calc Pharmacy 95.6; Estimated Glomerular Filt Rate > 60; Glucose Random 121 mg/dL (60-115); Potassium 4.2 mmol/L (3.3-5.1); Sodium 137 mmol/L (135-145)
[2022-09-28] MEDS: Heparin Sodium,Porcine/1/2NS 25,000 UNIT/250 ML IV.SOLN 14.77 UNIT IVCONT (05:10)
[2022-09-28 06:00] VITALS: BMI 35.6
[2022-09-28 08:00] VITALS: BP 129/75; PULSE 70; RESP 19; TEMP 36.6; O2SAT 97
[2022-09-28] MEDS: Aspirin 81 MG TAB.CHEW PO (10:09)
[2022-09-28] MEDS: amLODIPine Besylate 10 MG TABLET PO (10:09)
--- NOTE | 2022-09-28 10:38 | MHC.CM.PN ---
met with family gave ariana holguin name and phone number to cntact on thu faxed refrrral to ariana sultana as well..
--- NOTE | 2022-09-28 10:41 | PM.PNCARD ---
Subjective Subjective Date of Service: 09/28/22 Interval history: He states he feels okay. No new cardiac complaints. Review of Systems Review of Systems Yes all other systems are reviewed and are negative Constitutional: Reports as per HPI Eyes: Reports as per HPI Reports as per HPI Cardiovascular: Reports as per HPI, Denies acrocyanosis, Denies cool extremities, Denies chest pain, Denies leg edema, Denies lightheadedness, Denies palpitations and Denies dyspnea Respiratory: Reports as per HPI, Reports no additional respiratory complaints and Denies dyspnea Gastrointestinal: Reports as per HPI and Reports no additional gastrointestinal complaints Genitourinary: Reports no additional male genitourinary complaints and Reports as per HPI Musculoskeletal: Reports no additional musculoskeletal complaints and Reports as per HPI Skin/Breast: Reports system reviewed and no additional complaints, except as docu Reports system reviewed and no additional complaints, except as documented and Reports as per HPI Psychiatric: Reports no additional psychiatric complaints and Reports as per HPI Endocrine: Reports no additional endocrine complaints, Reports as per HPI and Denies palpitations Hematologic/Lymphatic: Reports no additional hematologic/lymphatic complaints and Reports as per HPI Allergic/Immunologic: Reports no additional allergic/immunologic complaints and Reports as per HPI Physical Exam Vital Signs: Last Vital Signs Temp 97.9 F 09/28/22 08:00 Pulse 70 09/28/22 08:00 Resp 19 09/28/22 08:00 BP 129/75 09/28/22 08:00 Pulse Ox 97 09/28/22 08:00 O2 Del Method 09/28/22 08:00 BMI result Body Mass Index 35.6 Const General: comfortable and no acute distress Orientation/consciousness: patient oriented x3 HEENT Other: Unremarkable Head: Yes normal to inspection Neck Neck: Yes normal visual inspection Chest Chest palpation & inspection: normal inspection of the chest Resp Auscultation: clear to auscultation bilaterally Cardio Palpation: normal PMI Heart sounds: S1 normal heart sound present, S2 normal heart sound present, no gallops, no murmurs and no rubs GI Palpation (GI): Soft to palpation Back/Spine/Pelvis Other: unremarkable Skin General skin exam: no rashes or lesions noted Neuro General: patient oriented x3 Extrem General: Yes normal to inspection Psych Mental Status: mental status grossly normal Objective Labs and Meds Result diagrams: 09/28/22 04:02 09/28/22 04:02 Lab results: Laboratory Results - last 24 hr 09/27/22 09/27/22 09/28/22 13:47 21:25 04:02 WBC RBC Hgb Hct MCV MCH MCHC RDW Plt Count MPV Absolute Nucleated RBC Nucleated RBC % (auto) PT INR aPTT Heparin Protocol 44.8 L D 44.5 L Sodium 137 Potassium 4.2 Chloride 102 Carbon Dioxide 23 Anion Gap 16 BUN 15 Creatinine 1.04 Estim Creat Clear Calc 95.6 Estimated GFR > 60 Random Glucose 121 H D Calcium 9.4 D B-Natriuretic Peptide 09/28/22 09/28/22 09/28/22 04:02 04:02 04:02 WBC 7.7 RBC 4.77 Hgb 14.7 Hct 42.8 MCV 89.7 MCH 30.8 MCHC 34.3 RDW 12.6 Plt Count 229 MPV 8.3 L Absolute Nucleated RBC 0.000 Nucleated RBC % (auto) 0.0 PT 10.9 INR 1.0 aPTT Heparin Protocol 66.7 D Sodium Potassium Chloride Carbon Dioxide Anion Gap BUN Creatinine Estim Creat Clear Calc Estimated GFR Random Glucose Calcium B-Natriuretic Peptide 229 H 09/28/22 04:02 WBC RBC Hgb Hct MCV MCH MCHC RDW Plt Count MPV Absolute Nucleated RBC Nucleated RBC % (auto) PT Cancelled INR Cancelled aPTT Heparin Protocol Sodium Potassium Chloride Carbon Dioxide Anion Gap BUN Creatinine Estim Creat Clear Calc Estimated GFR Random Glucose Calcium B-Natriuretic Peptide Progress Note: A&P Assessment and plan (1) Hypertensive emergency: Status: Acute Assessment and Plan: Admission blood pressure was 242/165 mm Hg. Currently 129/75 mm Hg. Currently on amlodipine 10 mg daily. If blood pressure goes up, then start Coreg. (2) NSTEMI (non-ST elevated myocardial infarction): Status: Acute Assessment and Plan: Not clear if he has any underlying coronary disease or if it is all just from uncontrolled hypertension. He is currently on heparin drip, aspirin and statins. We discussed about cardiac catheterization, transfer to [facility] but patient states that he will not be able to afford due to insurance issues. I also discussed with the clinical case manager who states financial department should be able to help but overall patient has decided that he does not want to be transferred at any cost. We discussed about the possibility of even due to undiagnosed coronary disease but he states that he will take that chance. His is also adamant about this. Hence we can plan on 48 hours of heparin drip, aspirin and statins. At least echocardiogram can be completed tomorrow. Then eventually outpatient management once the insurance issues sorted out. Plan Also discussed with Tamara Aggarwal. Time Spent With Patient Time: Total time spent is greater than 50% in coordination of care (as documented) at patient's floor/unit and/or counseling patient: 40min. Progress Note: Quality Stroke Does the patient have a stroke diagnosis?: No Procedures Date of Service Date of Service: 09/28/22
[2022-09-28 10:43] LABS: PTT Heparin Drip 57.6 SEC (53-77.9)
[2022-09-28 11:47] VITALS: BP 141/79; PULSE 76; RESP 18; TEMP 36.2; O2SAT 97
--- NOTE | 2022-09-28 15:01 | HO.PM.IMPN ---
Subjective Subjective Date of Service: 09/28/22 Review of Systems Follow up NSTEMI no chest pain or SOB Physical Exam Vital Signs: Vital Signs: Last Vital Signs Temp 97.2 F 09/28/22 11:47 Pulse 76 09/28/22 11:47 Resp 18 09/28/22 11:47 BP 141/79 H 09/28/22 11:47 Pulse Ox 97 09/28/22 11:47 O2 Del Method 09/28/22 11:47 BMI result Body Mass Index 35.6 Appearing in no acute distress lung sounds are clear to auscultation heart regular rate rhythm, clear S1, S2 positive bowel sounds, abdomen is soft, nontender neuro patient is alert x3, no focal deficits Objective Data Active Medications Acetaminophen (Acetaminophen 325 Mg Tablet) 650 mg PO Q6H PRN PRN Reason: Pain, Mild (Pain Scale 1-3) Amlodipine Besylate (Amlodipine Besylate 10 Mg Tablet) 10 mg PO DAILY COUNTS INCLUDE 234 BEDS AT THE [facility]; Protocol Last Admin: 09/28/22 10:09 Dose: 10 mg Documented By: HANNAH Aspirin (Aspirin 81 Mg Tab.Chew) 81 mg PO DAILY COUNTS INCLUDE 234 BEDS AT THE [facility] Last Admin: 09/28/22 10:09 Dose: 81 mg Documented By: HANNAH Atorvastatin Calcium (Atorvastatin Calcium 80 Mg Tablet) 80 mg PO BEDTIME COUNTS INCLUDE 234 BEDS AT THE [facility] Docusate Sodium (Docusate Sodium 100 Mg Capsule) 100 mg PO DAILY PRN PRN Reason: Constipation Heparin Sodium (Porcine) (Heparin Sodium,Porcine 5,000 Unit/Ml Vial) 4,800 unit 40 unit/kg (4800 unit) IVPUSH PROTOCOL BOLUS PRN; Protocol PRN Reason: 40 unit/kg - Heparin Protocol Last Admin: 09/27/22 22:11 Dose: 4,800 unit Documented By: HUNTER Heparin Sodium (Porcine) (Heparin Sodium,Porcine 5,000 Unit/Ml Vial) 9,500 unit 80 unit/kg (9500 unit) IVPUSH PROTOCOL BOLUS PRN; Protocol PRN Reason: 80 unit/kg - Heparin Protocol Heparin Sodium/Sodium Chloride (Heparin Sodium,Porcine/1/2ns) 25,000 unit in 250 mls @ 0 mls/hr IVCONT .Q0M COUNTS INCLUDE 234 BEDS AT THE [facility]; Protocol Last Titration: 09/28/22 11:16 Dose: 12.4 units/kg/hr, 14.77 mls/hr Documented By: HANNAH Co-signed By: ALLISON Ondansetron HCl (Ondansetron Hcl 4 Mg/2 Ml Vial) 4 mg IVPUSH Q8H PRN PRN Reason: Nausea and Vomiting Sodium Chloride (0.9 % Sodium Chloride Flush 3 Ml Syringe) 3 ml IVFLUSH QSHIFT DEEPALI Last Admin: 09/28/22 09:01 Dose: Not Given Documented By: HANNAH Non-Admin Reason: IV Running Labs CBC & Chem 7: 09/28/22 04:02 09/28/22 04:02 Labs: Laboratory Results - last 24 hr 09/27/22 09/28/22 09/28/22 21:25 04:02 04:02 MCV MCH MCHC RDW Plt Count MPV Absolute Nucleated RBC Nucleated RBC % (auto) PT INR aPTT Heparin Protocol 44.5 L Anion Gap 16 Estim Creat Clear Calc 95.6 Estimated GFR > 60 Random Glucose 121 H D Calcium 9.4 D B-Natriuretic Peptide 229 H 09/28/22 09/28/22 09/28/22 04:02 04:02 04:02 MCV 89.7 MCH 30.8 MCHC 34.3 RDW 12.6 Plt Count 229 MPV 8.3 L Absolute Nucleated RBC 0.000 Nucleated RBC % (auto) 0.0 PT 10.9 Cancelled INR 1.0 Cancelled aPTT Heparin Protocol 66.7 D Anion Gap Estim Creat Clear Calc Estimated GFR Random Glucose Calcium B-Natriuretic Peptide 09/28/22 10:16 MCV MCH MCHC RDW Plt Count MPV Absolute Nucleated RBC Nucleated RBC % (auto) PT INR aPTT Heparin Protocol 57.6 Anion Gap Estim Creat Clear Calc Estimated GFR Random Glucose Calcium B-Natriuretic Peptide Assessment and Plan (1) NSTEMI (non-ST elevated myocardial infarction): Status: Acute Plan 66-year-old male who has not seen a physician in 15 years and reports no past medical history presents to the hospital with complaints of fatigue found to have hypertensive crisis Hypertensive emergency. Improved Blood pressure 240/160 Received labetalol and started on amlodipine.? Significant improvement in blood pressure Continue to monitor blood pressure closely, start on Coreg if blood pressure goes up NSTEMI Likely secondary to hypertension, Elevated troponins as high as 3600 with ischemic EKG changes continue heparin drip for 48 hours Echocardiogram ordered Needs catheterization but does not have insurance Aspirin, statin DVT prophylaxis: heparin subq Attending Dr. Cloud Continue hospitalization for treatment of NSTEMI requiring IV heparin Quality Stroke Does the patient have a stroke diagnosis?: No VTE Prior VTE?: No VTE Risk Level:: Medical - low VTE Device Contraindication: Treatment Not Indicated VTE Drug Contraindication: Treatment Not Indicated
[2022-09-28 16:00] VITALS: BP 138/80; PULSE 84; RESP 19; TEMP 36.7; O2SAT 97
[2022-09-28 20:00] VITALS: BP 126/70; PULSE 86; RESP 20; TEMP 37; O2SAT 98
[2022-09-28] MEDS: Atorvastatin Calcium 80 MG TABLET PO (20:32)
[2022-09-29] VITALS: BP 155/87; PULSE 68; RESP 18; TEMP 36.8; O2SAT 96
[2022-09-29] MEDS: Heparin Sodium,Porcine/1/2NS 25,000 UNIT/250 ML IV.SOLN 14.77 UNIT IVCONT (01:57)
[2022-09-29 06:00] VITALS: BMI 35.6
[2022-09-29 06:22] LABS: PTT Heparin Drip 68.3 SEC (53-77.9)
--- NOTE | 2022-09-29 07:00 | CA_ITS ---
Transthoracic Echocardiogram Patient (Last, First, Middle): Duarte Vargas J Gender: Male Date of : 1955 Age: 66 Procedure Date: 09/29/2022 Procedure Type: Transthoracic [place] [facility] [place]: 182.88 cm Weight: 119.3 kg BSA: 2.39 m2 Heart Rate: bpm BP: 155 / 87 mmHg First Assistant Manager: JENNIFER Referring MD: Maryjo Moody MD Symptoms: elevated trop Study Quality: Technically Difficult due to body habitus ECG Rhythm: Atrial Fibrillation Conclusions: - Normal left ventricular size and systolic function. There is mildly increased left ventricular wall thickness. The visually estimated ejection fraction is between 65-70%. - The basal inferior segment is akinetic. - Normal right ventricular cavity size and systolic function. - There is mild dilatation of the ascending aorta measuring 4.10 cm. Findings Procedure Information Contrast agent, definity, is being given per protocol without apparent complications. Left Ventricle Normal left ventricular size and systolic function. There is mildly increased left ventricular wall thickness. The visually estimated ejection fraction is between 65-70%. Abnormal diastolic function is noted. Spectral Doppler is indicative of an impaired relaxation filling pattern. E/E prime ratio is between 8 and 15 consistent with indeterminate filling pressures. Wall Motion Rest Echo Findings The basal inferior segment is akinetic. Right Ventricle Normal right ventricular cavity size and systolic function. Atria The left atrium is normal in size. The right atrium is normal in size. Aortic Valve Normal aortic valve structure and function. There is no aortic valve stenosis. There is no aortic valve regurgitation. Mitral Valve Normal mitral valve structure and function. There is no mitral valve regurgitation. There is no mitral valve stenosis. Pulmonic Valve The pulmonic valve is likely normal. Tricuspid Valve Normal tricuspid valve structure. There is trace tricuspid valve regurgitation. Normal right atrial pressure. There is no evidence of pulmonary hypertension. Great Vessels There is mild dilatation of the ascending aorta measuring 4.10 cm. The visualized portions of the pulmonary artery and branches are normal. Venous The inferior vena cava is normal in size and collapses greater than 50% with inspiration. Pericardium/Pleural There is no evidence of pericardial effusion. Prior Study Comparison No prior study available for comparison. Measurements 2D Linear Measurements IVSd: 1.18 0.6-0.9/0.6-1.0 cm LVIDd: 5.59 3.9-5.3/4.2-5.9 cm LVIDd Index: 2.34 2.4-3.2/2.2-3.1 cm/m2 LVIDs: 4.30 2.0-3.6 cm LVPWd: 1.44 0.7-1.1 cm Ao Root: 4.10 2.1-3.5 cm LA Diam: 4.00 2.7-3.8/3.0-4.0 cm LAIDs Index: 1.67 1.5-2.3 cm/m2 LV Mass: 393.86 67-162/88-224 g LV Mass Index: 164.79 43-95/49-115 g/m2 LVOT Diam: 2.30 3.0+(-)1.3 cm 2D Systolic Function EF 4C: 70.60 >55% EF 2C: 69.50 >55% EF BiP: 70.70 >55% Mitral Valve MV Pk E: 0.73 MV PK A: 0.83 MV Decel Time: 205.00 E/A: 0.90 E'Lateral: 5.92 E'Medial: 5.68 E/E' Med: 12.90 E/E' Lat: 12.40 PHT: 60.00 MVA PHT: 3.67 Decel Sawyer: 3.58 Aortic Valve AoV Pk Panda: 1.16 AoV Mn Panda: 0.81 AoV VTI: 0.20 AoV Pk Grad: 5.00 Aov Mn Grad: 3.00 PINA Cont.VTI: 3.35 LVOT LVOT Pk Panda: 0.82 LVOT Mn Panda: 0.51 LVOT VTI: 0.16 LVOT Pk Grad: 3.00 LVOT Mn Grad: 1.00 LVOT Diam: 2.30 LVOT Area: 4.15 Diastolic Function MV Pk E: 0.73 MV Pk A: 0.83 E/A: 0.90 E'Medial: 5.68 E/E' Med: 12.90 E' Laterial: 5.92 E/E' Lat: 12.40 Right Ventricle TAPSE (mm): 25.00 TVS' Panda: 8.00 Tricuspid Valve TR Pk Panda: 2.65 TR Pk Grad: 28.00 RA Press: 8.00 RVSP: 36.00 Great Vessels Aorta Ao Root-2D: 4.10 2.0-3.7 cm Ao Asc: 4.10 2.1-3.4 cm Pulmonary Valve PV Pk Panda: 1.02 Peak PV Grad: 4.00 Updated in Other Vendor System with Status of Final Jimmy Urban MD electronically signed on 09/29/2022 4:22:14 PM with status of Final
[2022-09-29 07:45] VITALS: BP 127/78; PULSE 75; RESP 16; TEMP 36.3; O2SAT 97
[2022-09-29 09:20] LABS: Cholesterol 242 mg/dL; HDL Cholesterol 48 mg/dL; LDL Cholesterol Calculated 152 mg/dl; Triglycerides 210 mg/dL
[2022-09-29] MEDS: amLODIPine Besylate 10 MG TABLET PO (09:27)
[2022-09-29] MEDS: Aspirin 81 MG TAB.CHEW PO (09:27)
[2022-09-29 11:50] VITALS: BP 134/73; PULSE 86; RESP 16; TEMP 36.5; O2SAT 97
--- NOTE | 2022-09-29 12:53 | PM.PNCARD ---
Subjective Subjective Date of Service: 09/29/22 Interval history: Seen examined at bedside. Denying any chest discomfort. He is saying his symptoms have improved. Blood pressure control is also good. Physical Exam Vital Signs: Last Vital Signs Temp 97.7 F 09/29/22 11:50 Pulse 86 09/29/22 11:50 Resp 16 09/29/22 11:50 BP 134/73 09/29/22 11:50 Pulse Ox 97 09/29/22 11:50 O2 Del Method 09/29/22 11:50 BMI result Body Mass Index 35.6 GENERAL APPEARANCE: in no acute distress, pleasant. NECK: no carotid bruit, no jugular venous distention. SKIN: no suspicious lesions, warm and dry. HEART: no murmurs, regular rate and rhythm. LUNGS: clear to auscultation bilaterally. ABDOMEN: soft, nontender. EXTREMITIES: no edema. PERIPHERAL PULSES: equal. NEUROLOGIC: No gross deficits, AAO X 3 Objective Labs and Meds Result diagrams: 09/28/22 04:02 09/28/22 04:02 Lab results: Laboratory Results - last 24 hr 09/29/22 09/29/22 06:02 08:24 aPTT Heparin Protocol 68.3 Triglycerides 210 Cholesterol 242 LDL Cholesterol, Calc 152 HDL Cholesterol 48 Progress Note: A&P Assessment and plan (1) NSTEMI (non-ST elevated myocardial infarction): Status: Acute (2) Hypertensive emergency: Status: Acute Plan 66-year-old gentleman who presented with shortness of breath and bilateral shoulder weakness in the setting of elevated blood pressure. Ruled in for NSTEMI. He had lateral T-wave inversions on the EKG. His presentation was quite concerning for acute coronary syndrome. His blood pressure has normalized after amlodipine 10 mg once a day. He has insurance issues and is unable to be transferred from [place] to [facility] for cardiac catheterization because he has no insurance. Echocardiography has shown normal biventricular function with basal inferior wall motion abnormality. His blood pressure has improved currently. I would add Toprol-XL 25 mg once a day. Load him with 300 mg of Plavix and start him on Plavix 75 mg daily along with aspirin. Ideally he should be transferred to [facility] to have a diagnostic angiogram because his story is quite suspicious for underlying coronary disease but due to financial issues the patient does not want to be transferred currently. He will be turning 67 soon and will have insurance at that stage and we will arrange a diagnostic angiogram for him then. Having normal wall motion abnormality on the echocardiogram does not rule out underlying critical coronary disease and as mentioned the recommendation is that patient be transferred but we have to respect patient's situation. Thank you for allowing me to participate in the care of your patient. Please feel free to contact me if you have any questions. Time Spent With Patient Time: Total time spent is greater than 50% in coordination of care (as documented) at patient's floor/unit and/or counseling patient: Progress Note: Quality Stroke Does the patient have a stroke diagnosis?: No Procedures Date of Service Date of Service: 09/29/22
[2022-09-29 16:00] VITALS: BP 140/76; PULSE 66; RESP 18; TEMP 36.9; O2SAT 96
--- NOTE | 2022-09-29 16:30 | MHC.CM.PN ---
Patient was seen by Financial disc pad grinder this am. The referral was made because the patient does not have health insurance. He was planning to refuse tx to [facility] r/t no insurance coverage. He had an Echo this afternoon. The results are pending. DP home no services family transport.
--- NOTE | 2022-09-29 17:19 | P.PNIM_ITS ---
Subjective Subjective Date of Service: 09/30/22 Interval History: being followed for non ST-elevation IA, denies chest pain, no shortness of breath, no palpitations, no other acute events overnight, eager to be discharged home. Review of Systems General no headache, no dizziness, no fever, chills. CVS no chest pain, no palpitation. Respiratory no cough, no sob Gastrointestinal no nausea, no vomiting, no abdominal pain Review of Systems: Yes all other systems are reviewed and are negative Physical Exam Vital Signs: Vital Signs: Last Vital Signs Temp 98.5 F 09/29/22 16:00 Pulse 66 09/29/22 16:00 Resp 18 09/29/22 16:00 BP 140/76 H 09/29/22 16:00 Pulse Ox 96 09/29/22 16:00 O2 Del Method 09/29/22 16:00 BMI result Body Mass Index 35.6 Const: Other: General awake alert, in no acute distress. Neck is supple no JVD. CVS regular rate rhythm, Respiratory lungs clear to auscultation, no respiratory distress, no wheeze, no rhonchi. Gastrointestinal abdomen soft,obese, non tender, bowel sounds audible, no guarding , no rigidity. Extremities no edema. Neuro nonfocal Skin no rash psych appropriate affect Objective Data Active Medications Acetaminophen (Acetaminophen 325 Mg Tablet) 650 mg PO Q6H PRN PRN Reason: Pain, Mild (Pain Scale 1-3) Amlodipine Besylate (Amlodipine Besylate 10 Mg Tablet) 10 mg PO DAILY [facility]; Protocol Last Admin: 09/29/22 09:27 Dose: 10 mg Documented By: AGUSTÍN Aspirin (Aspirin 81 Mg Tab.Chew) 81 mg PO DAILY [facility] Last Admin: 09/29/22 09:27 Dose: 81 mg Documented By: AGUSTÍN Atorvastatin Calcium (Atorvastatin Calcium 80 Mg Tablet) 80 mg PO BEDTIME [facility] Last Admin: 09/28/22 20:32 Dose: 80 mg Documented By: BONNIE Docusate Sodium (Docusate Sodium 100 Mg Capsule) 100 mg PO DAILY PRN PRN Reason: Constipation Ondansetron HCl (Ondansetron Hcl 4 Mg/2 Ml Vial) 4 mg IVPUSH Q8H PRN PRN Reason: Nausea and Vomiting Sodium Chloride (0.9 % Sodium Chloride Flush 3 Ml Syringe) 3 ml IVFLUSH QSHIFT [facility] Last Admin: 09/29/22 09:30 Dose: Not Given Documented By: AGUSTÍN Non-Admin Reason: IV Running Labs CBC & Chem 7: 09/28/22 04:02 09/28/22 04:02 Labs: Laboratory Results - last 24 hr 09/29/22 09/29/22 06:02 08:24 aPTT Heparin Protocol 68.3 Triglycerides 210 Cholesterol 242 LDL Cholesterol, Calc 152 HDL Cholesterol 48 Assessment and Plan (1) NSTEMI (non-ST elevated myocardial infarction): Status: Acute (2) Hypertensive emergency: Status: Acute Plan 66-year-old male who has not seen a physician in 15 years and reports no past medical history presents to the hospital with complaints of fatigue found to have hypertensive crisis Hypertensive emergency.? Improved Blood pressure 240/160 on admission now improved to 127/78 continue Norvasc will add low-dose Toprol-XL 25 mg NSTEMI denies chest pain,Elevated troponins as high as 3600 with ischemic EKG changes dc heparin drip status post 48 hours Echocardiogram showed EF 65-70%, abnormal diastolic function, akinetic basal in ferior segment, case discussed with Dr. Urban he recommend to continue aspirin, statin, Norvasc, recommend to load with Plavix 300 mg followed by Plavix 75 mg daily, and to add Toprol-XL 25 mg initially patient declined cardiac catheterization due to lack of insurance, but now agreeing for cardiac catheterization will discuss with Cardiology for transfer to [facility] DVT prophylaxis: heparin subq Continue hospitalization for treatment of NSTEMI Quality Stroke Does the patient have a stroke diagnosis?: No VTE Prior VTE?: No VTE Risk Level:: Medical - low VTE Device Contraindication: Treatment Not Indicated VTE Drug Contraindication: Treatment Not Indicated
[2022-09-29] MEDS: 0.9 % Sodium Chloride Flush 3 ML SYRINGE IVFLUSH (17:27)
[2022-09-29] MEDS: Metoprolol Succinate ER 25 MG TAB.ER.24H PO (18:51)
[2022-09-29] MEDS: Clopidogrel Bisulfate 300 MG TABLET PO (18:52)
[2022-09-29] MEDS: Atorvastatin Calcium 80 MG TABLET PO (19:54)
[2022-09-29 19:57] VITALS: BP 114/65; PULSE 77; RESP 18; TEMP 37.1; O2SAT 97
[2022-09-29 23:49] VITALS: BP 152/68; PULSE 65; RESP 18; TEMP 37.7; O2SAT 96
[2022-09-30] MEDS: 0.9 % Sodium Chloride Flush 3 ML SYRINGE IVFLUSH ×3 (00:01→17:05)
[2022-09-30 04:00] VITALS: BP 121/62; PULSE 76; RESP 20; TEMP 37; O2SAT 95
[2022-09-30 06:00] VITALS: BMI 35.6
[2022-09-30 07:37] LABS: PTT Heparin Drip 30.1 SEC (53-77.9)
[2022-09-30 08:00] VITALS: BP 122/62; PULSE 83; TEMP 37.1; O2SAT 92
[2022-09-30] MEDS: Aspirin 81 MG TAB.CHEW PO (09:04)
[2022-09-30] MEDS: amLODIPine Besylate 10 MG TABLET PO (09:04)
[2022-09-30] MEDS: Metoprolol Succinate ER 25 MG TAB.ER.24H PO (09:04)
[2022-09-30 12:00] VITALS: BP 121/71; PULSE 76; RESP 16; TEMP 36.5; O2SAT 96
[2022-09-30 15:28] VITALS: BP 130/74; PULSE 90; RESP 17; TEMP 37.1; O2SAT 96
--- NOTE | 2022-09-30 15:36 | PM.DS ---
DS: Providers Provider Date of Service: 09/30/22 Date of admission: 09/27/22 01:29 Primary care physician: None Physician Consults: 09/27/22 05:26 Consult to Cardiology Routine Consulting Provider: Celso Rodrigues Reason for consultation: elevated trop Has provider been notified: No DS: Diagnosis Discharge Diagnosis (1) NSTEMI (non-ST elevated myocardial infarction): Status: Acute (2) Hypertensive emergency: Status: Acute DS: Summary Hospital Course Hospital Course: Date of Service: 09/27/22 Chief Complaint: Fatigue This is a 66-year-old male with no past medical history that he knows of, he has not seen a physician in over 15 years presents to the hospital with complaints of feeling fatigue with minimal activity.? Patient reports that for the past 2 weeks he has had very strange symptoms that when he does minimal exertional activity he feels that he cannot take deep breaths and significant fatigue that improves on rest.? Patient denies any headache, no dizziness, palpitations, no cough, no sputum production, no abdominal pain nausea or vomiting, no diarrhea constipation, no urinary symptoms and no lower extremity edema.? On arrival to the ED patient's blood pressure was 2 40-1 was 65, patient at that time reported no other symptoms.? Including no headache no chest pain, and no urinary change.? Labs are significant for WBC count of 8.1, initial troponin of 192, increased to 1476, BNP of 180, EKG on arrival showed sinus tachycardia with a heart rate of 116, T-wave inversion in lead 3 Patient denies any chest pain. hospital course 66-year-old male who has not seen a physician in 15 years and reports no past medical history presents to the hospital with complaints of fatigue found to have hypertensive crisis and non ST-elevation NC Hypertensive emergency.?Blood pressure 240/160 on admission now improved to 127/78, continue Norvasc and low-dose Toprol-XL 25 mg. NSTEMI patient denied chest discomfort noted to have Elevated high sensitive troponins as high as 3600 with ischemic EKG changes, treated with 48 hours of IV heparin drip, statins, aspirin and metoprolol xl 25mg and received loading dose of Plavix 300 mg followed by Plavix and 5 mg daily, Echocardiogram? showed EF 65-70%, abnormal diastolic function, akinetic basal inferior segment, LDL 152 with a total cholesterol of [address] Urban he recommend cardiac catheterization, initially patient declined cardiac catheterization due to lack of insurance, but later agreed therefore being transferred to [facility] obesity recommend low-calorie diet and exercise Time Spent with Patient Time attestation: Total time spent providing and/or coordinating discharge services: Discharge coordination time: Greater than 30 minutes Quality: Safe Use of Opioids Does Pt have an Active Cancer Diagnosis on the Problem List?: No Quality: Stroke Does the patient have a stroke diagnosis?: No Physical Exam Vital Signs: Vital Signs: Last Vital Signs Temp 98.7 F 09/30/22 15:28 Pulse 90 09/30/22 15:28 Resp 17 09/30/22 15:28 BP 130/74 09/30/22 15:28 Pulse Ox 96 09/30/22 15:28 O2 Del Method 09/30/22 15:28 BMI result Body Mass Index 35.6 Const: Other: General awake alert, in no acute distress.? Neck is supple no JVD. CVS? regular rate rhythm, Respiratory lungs clear to auscultation, no respiratory distress, no wheeze, no rhonchi. Gastrointestinal abdomen soft,obese, non tender, bowel sounds audible, no guarding , no rigidity. Extremities no? edema. Neuro nonfocal Skin no rash psych appropriate affect DS: Data Data Completed and Pending Labs on day of discharge: Laboratory Results - last 24 hr 09/30/22 06:58 aPTT Heparin Protocol 30.1 L D Discharge Plan Discharge Anticipated Discharge Date/Time: 09/30/22 15:31 Patient Disposition: Xfer Acute Care Hospital Discharge Diagnosis: non ST-elevation [place] hypertensive emergency Referrals: Physician,None [Primary Care Provider] - 1 Week Discharge Medications: New atorvastatin 80 mg Tablet 80 mg PO BEDTIME Qty: 30 0RF amlodipine 10 mg Tablet 10 mg PO DAILY Qty: 30 0RF Protocol: Hold for SBP< HOLD for SBP < : 90 aspirin 81 mg Tablet,Chewable 81 mg PO DAILY Qty: 30 0RF metoprolol succinate 25 mg Tablet Extended Release 24 Hr 25 mg PO DAILY Qty: 30 0RF Protocol: Hold for SBP/HR < HOLD for SBP < : 90 HOLD for HR < : 60 clopidogrel [Plavix] 75 mg tablet 75 mg PO DAILY Qty: 30 0RF Discharge Orders: Discharge Order (Routine); Ordered 09/30/22 Ordered By: Flaco Alston Diet: Low fat, low cholesterol Activity on Discharge: No Running or jogging Stand Alone Forms: Patient Portal Discharge page Care Plan Goals: non ST-elevation NC being transferred to [facility] for cardiac catheterization Health Concerns: continue all medication as prescribed previously patient was not on any home medication Plan of Treatment: outpatient follow-up with primary care physician and Cardiology for close blood pressure monitoring Assessment: as above Patient Instructions: Metoprolol (By mouth), Clopidogrel (By mouth)
--- NOTE | 2022-09-30 15:54 | PM.PNCARD ---
Subjective Subjective Date of Service: 09/30/22 Interval history: seen and examined. No further CP. Echo reviewed and discussed the patient. He is interested in going to [facility] to undergo cardiac catheterization. Physical Exam Vital Signs: Last Vital Signs Temp 98.7 F 09/30/22 15:28 Pulse 90 09/30/22 15:28 Resp 17 09/30/22 15:28 BP 130/74 09/30/22 15:28 Pulse Ox 96 09/30/22 15:28 O2 Del Method 09/30/22 15:28 BMI result Body Mass Index 35.6 GENERAL APPEARANCE: in no acute distress, pleasant. NECK: no carotid bruit, no jugular venous distention. SKIN: no suspicious lesions, warm and dry. HEART: no murmurs, regular rate and rhythm. LUNGS: clear to auscultation bilaterally. ABDOMEN: soft, nontender. EXTREMITIES: no edema. PERIPHERAL PULSES: equal. NEUROLOGIC: No gross deficits, AAO X 3 Objective Labs and Meds Result diagrams: 09/28/22 04:02 09/28/22 04:02 Lab results: Laboratory Results - last 24 hr 09/30/22 06:58 aPTT Heparin Protocol 30.1 L D Progress Note: A&P Assessment and plan (1) NSTEMI (non-ST elevated myocardial infarction): Status: Acute Plan 66-year-old gentleman with elevated blood pressure NSTEMI. Echocardiography has shown basal inferior wall motion abnormality. Overall image function normal. His presentation is with hypertensive emergency but he has other features which are quite concerning. He has sudden-onset bilateral shoulder weakness and shortness of breath which happened on 3 occasions at rest. He had T-wave inversion in the lateral leads which were dynamic changes. His troponin is more than 3600. He has been on aspirin and Plavix at this stage. Blood pressure control is optimal currently. We will transfer to [facility] for diagnostic cardiac catheterization tomorrow. Keep NPO after midnight. Thank you for allowing me to participate in the care of your patient. Please feel free to contact me if you have any questions. Time Spent With Patient Time: Total time spent is greater than 50% in coordination of care (as documented) at patient's floor/unit and/or counseling patient: Progress Note: Quality Stroke Does the patient have a stroke diagnosis?: No Procedures Date of Service Date of Service: 09/30/22
--- NOTE | 2022-09-30 18:24 | MHC.CM.PN ---
CM received urgent tiger text from Henry Parks with regards to this patient's insurance status. Pt needs transport to [facility] for cardiac cath. Does not have insurance. Ambulance was questioning who was responsible for payment. CM spoke with Tessie Vargas. Per Tessie, pt met with financial services yesterday. Pt will have [facility] that will retro back 30 days, so transport will be covered. E-mail forwarded to Lindsey Yuan [place] and Yohana jaime RN. CM will follow for any needed discharge planning.
== END 2022-09-30 18:50 | disposition short-term general hospital (02) | DRG 281 ==
LOC: HO.ED 22:54 → HO.IMC 09-27 07:05 → HO.EDOVER 09-27 07:20
PROVIDERS: Nurse Practitioner Acute Care; Student in an Organized Health Care Education/Training Program; Admitting Provider Internal Medicine; Emergency Provider Emergency Medicine; Visit Provider Hospitalist
DX: I21.4 Non-ST elevation (NSTEMI) myocardial infarction (principal); I16.1 Hypertensive emergency; Z20.822 Contact with and (suspected) exposure to COVID-19; Z87.891 Personal history of nicotine dependence
CPT/HCPCS: 0241U; 36415; 80048; 80053; 80061; 83880; 84484; 85025; 85027; 85610; 85730; 93005; 93306; 96361; 96374; 99285; Q9957